=== PATIENT | female | born 1950 | race African-American/Black ===

== ENCOUNTER 2016-08-14 06:14 | Day surgery (SDC) | payer MEDICARE, MEDICAID ==
[~2016-08-14] VITALS: Ht 157.5 cm; Wt 66.8 kg
[2016-08-14] MEDS ORDERED: SODIUM CHLORIDE 0.9% 1,000 ML IV ONE ×2 (06:45→07:00)
[2016-08-14] MEDS ORDERED: ISOS60TA4 PO (07:06)
[2016-08-14] MEDS ORDERED: HYDR25TA PO (07:06)
[2016-08-14] MEDS ORDERED: CLOP75 PO (07:06)
[2016-08-14] MEDS ORDERED: ATOR10TA84 PO (07:06)
[2016-08-14] MEDS ORDERED: ASPI-1107 PO (07:15)
[2016-08-14] MEDS ORDERED: LORA10TA7 PO (07:15)
[2016-08-14] MEDS ORDERED: QUIN10 PO (07:15)
[2016-08-14] MEDS ORDERED: BECL8.7A5 PO (07:15)
[2016-08-14] MEDS ORDERED: FAMO20 PO (07:15)
[2016-08-14] MEDS ORDERED: MONT10TA21 PO (07:15)
[2016-08-14] MEDS ORDERED: MULT-1251 PO (07:15)
[2016-08-14] MEDS ORDERED: FentaNYL CITRATE-PF 100 MCG/2 ML VIAL ONE (07:53)
[2016-08-14] MEDS ORDERED: MIDAZOLAM HCL 2 MG/2 ML VIAL ONE (07:53)
[2016-08-14] MEDS ORDERED: MethylPREDNISolone SOD SUCC 125 MG/2 ML VIAL IVP ONE (09:00)
[2016-08-14] MEDS ORDERED: MethylPREDNISolone SOD SUCC 125 MG/2 ML VIAL ONE (09:48)
[2016-08-14] MEDS ORDERED: ALBUTEROL SULFATE 2.5 MG/0.5 ML NEB SOLUTION NEB ONE (16:36)
[2016-08-14] MEDS ORDERED: LIDOCAINE HCL 2% 30 ML JELLY TP ONE (16:36)
[2016-08-14] MEDS ORDERED: LIDOCAINE HCL 4% 50 ML SOLUTION TP ONE (16:36)
[2016-08-14] MEDS ORDERED: BENZOCAINE 20% 50 MCG/SPRAY 57 GM TP ONE (16:36)
[2016-08-14] MEDS ORDERED: OXYGEN THERAPY IH SCH (20:00)
== END 2016-08-14 11:05 | disposition home or self-care (01) ==
LOC: SURGERY 06:14
PROVIDERS: ATTEND Internal Medicine Critical Care Medicine
DX: J38.4 Edema of larynx (principal); B37.0 Candidal stomatitis; I25.10 Atherosclerotic heart disease of native coronary artery without angina pectoris; I10 Essential (primary) hypertension
CPT/HCPCS: 31623; 31624; 71010; 87015 ×2; 87070; 87101; 87147; 87205; 87220; 88108; 88312; 93005; J2250; J2930; J3010; J7030